=== PATIENT | female | born 1970 | race Hispanic/Latino ===

== ENCOUNTER → 2018-11-27 | Outpatient (CLI) | payer BC | END | disposition home or self-care (01) | LOC: RAH 10:10 | PROVIDERS: ATTEND Internal Medicine Gastroenterology | DX: R10.12 Left upper quadrant pain (principal) | CPT/HCPCS: 76700 ==

== ENCOUNTER → 2019-11-09 | Outpatient (CLI) | payer BC ==
[~2019-11-09] MED LIST: LIDOCAINE HCL 1% 20 ML VIAL ONE; SODIUM BICARB 50MEQ 50ML VIAL ONE
[2019-11-09 11:38] LABS: BASOPHILS % (AUTO) 0.8 % (0.0-5.0); EOSINOPHILS % (AUTO) 3.5 % (0.0-8.0); LYMPHOCYTES % (AUTO) 33.4 % (21.0-51.0); MEAN CORPUSCULAR HEMOGLOBIN 26.2 pg (27.0-33.0); MEAN CORPUSCULAR HGB CONC 31.1 g/dL (32.0-36.0); MEAN CORPUSCULAR VOLUME 84.3 fL (79-99); NEUTROPHILS % (AUTO) 57.1 % (40.0-77.0); PLATELET COUNT (AUTO) 157 K/uL (130-400); RED BLOOD CELL COUNT(AUTO) 4.51 MIL/uL (4.00-5.50); RED CELL DISTRIBUTION WIDTH 16.5 % (11.0-15.5)
[2019-11-09 11:53] LABS: INR 0.95 (0.85-1.15); PARTIAL THROMBOPLASTIN TIME 24.6 SEC (26.3-35.5)
--- NOTE | 2019-11-09 12:25 | NUR ---
US GUIDED FNA/BIOPSY RIGHT THYROID NODULE PROCEDURE PERFORMED BY DR. ALEGRIA. PUNCTURE SITE RIGHT SIDE OF NECK. PATIENT TOLERATED PROCEDURE WELL. SPECIMEN X 3 COLLECTED BY LAB PERSONNEL. END OF PROCEDURE AT 1245. BIOPSY NEEDLE REMOVED AND DRESSING APPLIED. NO BLEEDING NOTED. DISCHARGE INSTRUCTIONS GIVEN TO PATIENT AND VERBALIZED UNDERSTANDING. DISCHARGED AMBULATORY. AAO X 3. NO C/O PAIN.
== END | disposition home or self-care (01) ==
LOC: RAH 10:00
PROVIDERS: ATTEND Internal Medicine
DX: E04.2 Nontoxic multinodular goiter (principal); J45.909 Unspecified asthma, uncomplicated; K21.9 Gastro-esophageal reflux disease without esophagitis; Z79.899 Other long term (current) drug therapy; Z98.890 Other specified postprocedural states; Z90.49 Acquired absence of other specified parts of digestive tract; Z80.3 Family history of malignant neoplasm of breast; Z82.3 Family history of stroke
CPT/HCPCS: 10005; 36415; 84443; 85025; 85610; 85730; 88173; J3490; 60100; 76942

== ENCOUNTER → 2022-08-07 | Outpatient (CLI) | payer BC ==
[~2022-08-07] MED LIST changes: -LIDOCAINE HCL 1% 20 ML VIAL ONE; +REGADENOSON 0.4 MG/5 ML PF SYG IVP SCH; -SODIUM BICARB 50MEQ 50ML VIAL ONE
[2022-08-07] MEDS: REGADENOSON 0.4 MG/5 ML PF SYG IVP ONE (12:50)
== END | disposition home or self-care (01) ==
LOC: SHCH 09:49
PROVIDERS: ATTEND Internal Medicine Cardiovascular Disease
DX: R00.0 Tachycardia, unspecified (principal); R00.2 Palpitations
CPT/HCPCS: 78452; 96374; 93017; J2785; A9500 ×2

== ENCOUNTER 2023-09-28 01:17 | Emergency (ER) | payer OTHER ==
[~2023-09-28] VITALS: Ht 160 cm; Wt 72.6 kg
[2023-09-28 01:38] LABS: ABG BASE EXCESS 1.7 mmol/L (-2.0-3.0); ABG HCO3 25.4 mmol/L (21.0-28.0); ABG OXYGEN SATURATION 99.4 % (95.0-99.0); ABG PCO2 37 mmHg (32-45); ABG PH 7.456 (7.35-7.450); CARBON MONOXIDE 0.3; DEVICE COMMENT NRB RR; HHb 0.6; PO2, ARTERIAL BG 470.3 mmHg (83.0-108.0); VENT MODE, BG RN STEPHEN (ROOM AIR)
[2023-09-28] MEDS ORDERED: ACETAMINOPHEN 500 MG TABLET PO ONE (02:30)
[2023-09-28 02:57] VITALS: BP 151/82; PULSE 84; RESP 18; O2SAT 100
== END 2023-09-28 03:08 | disposition home or self-care (01) ==
LOC: EDH 01:17
DX: T58.91XA Toxic effect of carbon monoxide from unspecified source, accidental (unintentional), initial encounter (principal); R51.9 Headache, unspecified; I10 Essential (primary) hypertension; J45.909 Unspecified asthma, uncomplicated; Z86.73 Personal history of transient ischemic attack (TIA), and cerebral infarction without residual deficits
CPT/HCPCS: 36600; 82435; 82803; 82947; 83605; 84132; 84295; 85018